=== PATIENT | male | born 2000 | race Caucasian/White ===

== ENCOUNTER 2021-02-06 14:10 | Emergency (ER) | payer OTHER ==
[2021-02-06] MEDS ORDERED: Diphtheria,Pertussis(Acell),Tetanus Vaccine 0.5 ML Syringe IM ONE (16:18)
[2021-02-06] MEDS ORDERED: Lidocaine 1% 30 ML SDV INJECT ONE (16:19)
--- NOTE | 2021-02-06 17:28 | EDM.PDOC ---
Scribed by Reyna Remy 02/06/21 [id number] for Rosas Stephens MD ED HPI GENERAL MEDICAL PROBLEM - General Chief Complaint: Laceration Stated Complaint: HAND LACERATION TRIAGE NEEDED Time Seen by Provider: 02/06/21 16:15 Source of Information: Reports: Patient, RN, RN Notes Reviewed History Limitations: Reports: No Limitations - History of Present Illness INITIAL COMMENTS - FREE TEXT/NARRATIVE: Patient presents to ED by POV cutting his left hand on a boxer cutter. Denies any other injury. Last tetanus is not up to date. Onset: Today Duration: Constant Location: Reports: Upper Extremity, Left Quality: Reports: Ache Severity: Severe Improves with: Reports: None Worsens with: Reports: None Associated Symptoms: Reports: No Other Symptoms - Related Data Allergies Allergy/AdvReac Type Severity Reaction Status Date / Time No Known Allergies Allergy Verified 02/06/21 17:13 Home Meds: Home Meds . [No Known Home Meds] 02/06/21 [History] ED ROS GENERAL - Review of Systems Review Of Systems: Comprehensive ROS is negative, except as noted in HPI. ED EXAM, SKIN/RASH Exam: See Below Exam Limited By: No Limitations General Appearance: Alert, WD/WN, Mild Distress Head: Atraumatic, Normocephalic Neck: Normal Inspection Respiratory/Chest: No Respiratory Distress Cardiovascular: Regular Rate, Rhythm Neurological: Alert, Oriented Psychiatric: Normal Mood Location, Skin: Upper Extremity, Left (3 cm straight laceration base of palmar side of thumb.) ED SKIN PROCEDURES - Laceration/Wound Repair Left Upper Anterior Hand Appearance: Subcutaneous Distal NVT: Neuro & Vascular Intact Anesthetic Type: Local Local Anesthesia - Lidocaine (Xylocaine): 1% Plain Local Anesthetic Volume: Other (7 cc) Skin Prep: Isopropyl Alcohol (Alcohol) Saline Irrigation (cc's): 20 Exploration/Debridement/Repair: Wound Explored, In a Bloodless Field, Explored to Base Closed with: Sutures Lac/Wound length In cm: 3 Suture Size: 4-0 Suture Type: Other (Ethilon) Tetanus Status Addressed: Yes Complications: No Course - Orders/Labs/Meds Orders: Active Orders 24 hr Category Date Time Status Vaccines to be Administered [RC] PER UNIT ROUTINE Care 02/06/21 16:18 Active Meds: Medications Discontinued Medications Generic Name Dose Route Start Last Admin Trade Name Freq PRN Reason Stop Dose Admin Diphtheria/Tetanus/Acell Pertussis 0.5 ml 02/06/21 16:18 Diphtheria,Pertussis(Acell),Tetanus Vaccine 0.5 Ml Syringe IM 02/06/21 16:19 .ONCE ONE Lidocaine HCl 30 ml 02/06/21 16:19 Lidocaine 1% 30 Ml Sdv INJECT 02/06/21 16:20 ONETIME ONE Departure - Departure Time of Disposition: 17:25 Disposition: Home, Self-Care 01 Condition: Good Clinical Impression: Laceration of left hand Qualifiers: Encounter type: initial encounter Foreign body presence: without foreign body Qualified Code(s): S61.412A - Laceration without foreign body of left hand, initial encounter - Discharge Information *PRESCRIPTION DRUG MONITORING PROGRAM REVIEWED*: Not Applicable *COPY OF PRESCRIPTION DRUG MONITORING REPORT IN PATIENT HONORIO: Not Applicable Instructions: Laceration Care, Adult, [id number] Forms: ED Department Discharge Additional Instructions: Follow up in clinic in 7-10 days for suture removal or sooner if any problems. - My Orders Last 24 Hours: My Active Orders 02/06/21 16:18 Vaccines to be Administered [RC] PER UNIT ROUTINE - Assessment/Plan Last 24 Hours: My Active Orders 02/06/21 16:18 Vaccines to be Administered [RC] PER UNIT ROUTINE I have read and agree with the documentation that has been completed regarding this visit. By signing this record, I attest that the documentation was completed in my physical presence and is an accurate record of the encounter.
== END 2021-02-06 17:51 | disposition home or self-care (01) ==
LOC: DL.ED 14:10
DX: S61.412A Laceration without foreign body of left hand, initial encounter (principal); Z23 Encounter for immunization; W26.8XXA Contact with other sharp object(s), not elsewhere classified, initial encounter
CPT/HCPCS: 12001; 12002; 90471; 90715; 99282; 99282-25